=== PATIENT | male | born 1960 | race Caucasian/White ===

== ENCOUNTER 2022-09-16 13:12 | Observation (INO) ==
[2022-09-16 13:33] LABS: ABS Lymphocytes 1.3 10^3/uL (1.0-4.8); ABS Monocytes 0.5 10^3/uL (0.0-1.1); ABS Neutrophils 7.3 10^3/uL (1.5-7.6); Eosinophil % 0.3 %; Hematocrit 39.3 % (38-53); Hemoglobin 13.3 g/dL (13.2-16.3); Lymphocyte % 14.4 %; Mean Corpuscular Hemoglobin 30.2 pg (27-33); Mean Corpuscular Hgb Conc 33.9 g/dL (31-36); Mean Corpuscular Volume 89.2 fL (80-97); Mean Platelet Volume 8.3 fL (7.5-11.2); Platelet Count 214 10^3/uL (150-450); Red Blood Count 4.41 10^6/uL (4.06-5.63); Red Cell Distribution Width 13.2 % (12-17); White Blood Count 9.2 10^3/uL (3.6-10.2)
[2022-09-16 13:52] LABS: Albumin 4.4 g/dL (3.2-5.2); Albumin/Globulin Ratio 1.8 (1-3); Calcium 9.2 mg/dL (8.6-10.3); Creatinine, Serum 0.79 mg/dL (0.67-1.17); Globulin 2.5 g/dL (2-4); Potassium 3.2 mmol/L (3.5-5.0); Total Bilirubin 0.5 mg/dL (0.2-1.0); Total Protein 6.9 g/dL (6.4-8.9); eGFR CKD-EPI 99.2 (>60)
[2022-09-16 13:55] LABS: INR 1.1 (0.88-1.18)
[2022-09-16 15:00] LABS: High Sensitivity Troponin 1 Hr 4 pg/mL (<20)
[2022-09-16 21:08] LABS: Erythrocyte Sed Rate 10 mm/Hr (0-19)
[2022-09-16 22:34] LABS: Folate 18.62 ng/mL (5.90-24.80)
[2022-09-17 00:31] LABS: Body Fluid Source Cerebral Spinal
[2022-09-17] MEDS ORDERED: Potassium Chlor 20 meq TAB.ER PO ONE ×2 (00:38→11:01)
[2022-09-17] MEDS ORDERED: HYDROcodone/Acetamin 10/325 TAB (NF) PO PRN (00:41)
[2022-09-17 00:49] LABS: CSF Glucose 73 mg/dL (40-70)
[2022-09-17] MEDS ORDERED: Enoxaparin 40 MG/0.4 ML SYR SUBCUT SCH (01:00)
[2022-09-17 01:38] LABS: Body Fluid Color Colorless; Body Fluid WBC 2 /mcL; CSF Tube # 4
[2022-09-17 01:40] LABS: Body Fluid Appearance Clear; Body Fluid Total Cells Counted 10
[2022-09-17] MEDS ORDERED: SULFASALAZINE 500 MG PO SCH (09:00)
[2022-09-17 10:52] LABS: Blood Urea Nitrogen 15 mg/dL (6-24); CO2 Carbon Dioxide 24 mmol/L (22-32); Calcium 9.4 mg/dL (8.6-10.3); Chloride 104 mmol/L (101-111); Creatinine, Serum 0.76 mg/dL (0.67-1.17); Glucose 225 mg/dL (70-100); Sodium 136 mmol/L (135-145); eGFR CKD-EPI 100.4 (>60)
[2022-09-17 10:55] VITALS: BP 138/69
[2022-09-17 11:05] LABS: Anion Gap 8 mmol/L (2-16)
[2022-09-20 15:38] LABS: IgG Immunoblot Negative (Negative); IgM Immunoblot Negative (Negative)
[2022-09-20 18:41] LABS: Anaplasma phagocytophilum Negative (Negative); B. miyamotoi PCR, B Negative (Negative); Babesia divergens/MO-1 Negative (Negative); Babesia ducani Negative (Negative); Ehrlichia chaffeensis Negative (Negative); Ehrlichia ewingii/canis Negative (Negative); Ehrlichia muris eauclairensis Negative (Negative)
[2022-09-21 15:53] LABS: Lyme CNS IgG Ab Index Interp Negative; Lyme CNS IgG Ab Index Value 0.8 (0.6 - 1.2)
== END 2022-09-17 19:17 | disposition home or self-care (01) ==
LOC: ED 13:12 → EDHOLD 13:12 → SUATTDRO 09-17 00:11 → EDHOLD 09-17 11:12
PROVIDERS: ADMIT Student in an Organized Health Care Education/Training Program; ATTEND Hospitalist